=== PATIENT | male | born 1995 | race African-American/Black ===

== ENCOUNTER 2020-10-11 09:53 | Inpatient (IN) | payer BC, OTHER ==
[2020-10-11] MEDS ORDERED: SODIUM CHLORIDE 1,000 ML IV STA (10:57)
[2020-10-11 12:16] LABS: BASO % 1.4 % (0-2.0); EOS % 1.5 % (0-4.5); HEMOGLOBIN 7.4 GM/dL (11.7-16.9); LYMPH % 43.8 % (8-40); MONO % 7.4 % (3.8-10.2); NEUT % 45.9 % (42.8-82.8); WHITE BLOOD COUNT 2.4 K/mm3 (4.0-10.0)
[2020-10-11 12:38] LABS: ALBUMIN 3.8 g/dl (3.4-5.0); CALCIUM 8.3 mg/dL (8.5-10.1)
[2020-10-11 12:39] LABS: BLOOD UREA NITROGEN 15.9 mg/dL (7-18)
[2020-10-11 12:42] LABS: CREATININE 0.7 mg/dL (0.55-1.3)
[2020-10-11 12:43] LABS: BILIRUBIN,TOTAL 0.7 mg/dL (0.2-1); TOT PROT 6.8 g/dl (6.4-8.2)
[2020-10-11 13:02] LABS: INR 1.16 (0.83-1.09); PROTHROMBIN TIME (PATIENT) 14.2 SEC (9.7-13.0)
[2020-10-11] MEDS ORDERED: MELATONIN 5 MG TABLETS PO ONE (20:53)
[2020-10-12] MEDS ORDERED: PANTOPRAZOLE SODIUM 40 MG VIAL IVPUSH ONE (01:11)
[2020-10-12] MEDS ORDERED: SODIUM CHLORIDE 1,000 ML IV SCH ×2 (02:30)
[2020-10-12 02:43] LABS: RETICULOCYTES 1.58 % (0.5-1.5)
[2020-10-12 02:59] LABS: HEMATOCRIT 23.1 % (35.4-49); MCH 23.9 pg (25.7-33.7); MEAN CELL VOLUME 74.7 fl (80-96); MEAN PLT VOLUME 10.9 fl (7.5-11.1); PLATELET COUNT 217 K/MM3 (134-434); RBC 3.09 M/mm3 (4.00-5.60); RDW 19.5 % (11.9-15.9)
[2020-10-12 08:32] LABS: PH,URINE 6.5 (5.0-8.0); URINE APPEARANCE CLEAR; URINE BILIRUBIN NEGATIVE (NEGATIVE); URINE COLOR YELLOW; URINE GLUCOSE (UA) NEGATIVE (NEGATIVE); URINE KETONE NEGATIVE (NEGATIVE); URINE LEUK ESTERASE NEGATIVE (NEGATIVE); URINE NITRITE NEGATIVE (NEGATIVE); URINE PROTEIN NEGATIVE (NEGATIVE); URINE UROBILINOGEN 0.2 mg/dL (0.2-1.0)
[2020-10-12 09:32] LABS: BASO % 0.9 % (0-2.0); EOS % 1.7 % (0-4.5); HEMATOCRIT 28.1 % (35.4-49); HEMOGLOBIN 9.3 GM/dL (11.7-16.9); LYMPH % 37.8 % (8-40); MCH 24.7 pg (25.7-33.7); MCHC 33.1 g/dl (32.0-35.9); MEAN CELL VOLUME 74.7 fl (80-96); MEAN PLT VOLUME 10.2 fl (7.5-11.1); MONO % 4.5 % (3.8-10.2); NEUT % 55.1 % (42.8-82.8); PLATELET COUNT 219 K/MM3 (134-434); RBC 3.77 M/mm3 (4.00-5.60)
[2020-10-12] MEDS ORDERED: PANTOPRAZOLE SODIUM 40 MG VIAL IVPUSH SCH (10:00)
[2020-10-12 10:05] LABS: ALBUMIN 4.1 g/dl (3.4-5.0); BLOOD UREA NITROGEN 8.9 mg/dL (7-18); CALCIUM 8.3 mg/dL (8.5-10.1); MAGNESIUM 2.1 mg/dL (1.8-2.4)
[2020-10-12 10:09] LABS: CREATININE 0.8 mg/dL (0.55-1.3)
[2020-10-12 10:10] LABS: BILIRUBIN,TOTAL 1.8 mg/dL (0.2-1); TOT PROT 7.4 g/dl (6.4-8.2)
[2020-10-12 10:52] LABS: HIV INTERPRETATION NEGATIVE (NEGATIVE)
[2020-10-12] MEDS ORDERED: ACETAMINOPHEN 325 MG TABLET (FP) PO PRN (11:13)
[2020-10-12] MEDS ORDERED: IRON SUCROSE INJECTION 200 MG in SODIUM CHLORIDE 90 ML IVPB ONE (12:00)
[2020-10-12] MEDS ORDERED: PT OWN MED DRAWER 7, Y5N ONE (13:16)
[2020-10-12] MEDS: MAG HYDROX/AL HYDROX/SIMETH 30 ML UNIT-DOSE CUP PO SCH ×3 (13:21→23:30)
[2020-10-12] MEDS: PANTOPRAZOLE SODIUM 80 MG in SODIUM CHLORIDE 100 ML IVPB SCH ×2 (13:27→21:37)
[2020-10-12] MEDS ORDERED: MELATONIN 5 MG TABLETS PO ONE (21:05)
[2020-10-13] MEDS: PANTOPRAZOLE SODIUM 80 MG in SODIUM CHLORIDE 100 ML IVPB SCH ×3 (03:57→17:24)
[2020-10-13] MEDS: MAG HYDROX/AL HYDROX/SIMETH 30 ML UNIT-DOSE CUP PO SCH ×4 (05:35→23:58)
[2020-10-13 09:06] LABS: BASO % 1.8 % (0-2.0); EOS % 1.8 % (0-4.5); HEMATOCRIT 30.2 % (35.4-49); HEMOGLOBIN 10.2 GM/dL (11.7-16.9); LYMPH % 29.6 % (8-40); MCH 25.8 pg (25.7-33.7); MEAN CELL VOLUME 75.9 fl (80-96); MEAN PLT VOLUME 10.2 fl (7.5-11.1); MONO % 7.1 % (3.8-10.2); NEUT % 59.7 % (42.8-82.8); PLATELET COUNT 226 K/MM3 (134-434); RBC 3.97 M/mm3 (4.00-5.60); RDW 21.1 % (11.9-15.9); WHITE BLOOD COUNT 3.6 K/mm3 (4.0-10.0)
[2020-10-13 09:07] LABS: HEMATOCRIT 30.4 % (35.4-49); HEMOGLOBIN 10.2 GM/dL (11.7-16.9); MCH 25.6 pg (25.7-33.7); MCHC 33.6 g/dl (32.0-35.9); MEAN CELL VOLUME 76.2 fl (80-96); MEAN PLT VOLUME 9.9 fl (7.5-11.1); PLATELET COUNT 221 K/MM3 (134-434); RBC 3.99 M/mm3 (4.00-5.60); RDW 21.1 % (11.9-15.9); WHITE BLOOD COUNT 3.7 K/mm3 (4.0-10.0)
[2020-10-13 09:20] LABS: CHLORIDE 106 mmol/L (98-107); SODIUM 139 mmol/L (136-145)
[2020-10-13 09:30] LABS: CALCIUM 8.1 mg/dL (8.5-10.1)
[2020-10-13 09:31] LABS: ALBUMIN 3.8 g/dl (3.4-5.0); ANION GAP 5 MMOL/L (8-16); BLOOD UREA NITROGEN 8.7 mg/dL (7-18); CO2 27 mmol/L (21-32); GLUCOSE,RANDOM 73 mg/dL (74-106)
[2020-10-13 09:34] LABS: CREATININE 0.9 mg/dL (0.55-1.3); SGOT/AST 10 U/L (15-37); SGPT/ALT 12 U/L (13-61)
[2020-10-13 09:36] LABS: BILIRUBIN,TOTAL 2.9 mg/dL (0.2-1); TOT PROT 6.8 g/dl (6.4-8.2)
[2020-10-13 09:37] LABS: ALK PHOS 36 U/L (45-117)
[2020-10-13 09:52] LABS: ANISOCYTOSIS 2+; MACROCYTOSIS 1+; PLATELET ESTIMATE NORMAL
[2020-10-13 14:43] VITALS: BMI 19.3
[2020-10-13] MEDS ORDERED: PT OWN MED DRAWER 7, Y5N ONE (15:06)
[2020-10-14] MEDS: PANTOPRAZOLE SODIUM 80 MG in SODIUM CHLORIDE 100 ML IVPB SCH ×2 (00:36→05:41)
[2020-10-14] MEDS: MAG HYDROX/AL HYDROX/SIMETH 30 ML UNIT-DOSE CUP PO SCH ×4 (05:40→23:01)
[2020-10-14 08:59] LABS: HEMATOCRIT 30.9 % (35.4-49); HEMOGLOBIN 10.5 GM/dL (11.7-16.9); MCH 25.6 pg (25.7-33.7); MCHC 33.9 g/dl (32.0-35.9); MEAN CELL VOLUME 75.3 fl (80-96); MEAN PLT VOLUME 9.8 fl (7.5-11.1); PLATELET COUNT 212 K/MM3 (134-434); RBC 4.11 M/mm3 (4.00-5.60); RDW 21.8 % (11.9-15.9); WHITE BLOOD COUNT 3.6 K/mm3 (4.0-10.0)
[2020-10-14] MEDS ORDERED: IRON SUCROSE INJECTION 200 MG in SODIUM CHLORIDE 90 ML IVPB ONE (09:00)
[2020-10-14 09:19] LABS: BLOOD UREA NITROGEN 10.5 mg/dL (7-18); CALCIUM 8.9 mg/dL (8.5-10.1)
[2020-10-14 09:20] LABS: ALBUMIN 3.9 g/dl (3.4-5.0)
[2020-10-14 09:23] LABS: CREATININE 0.9 mg/dL (0.55-1.3)
[2020-10-14 09:24] LABS: BILIRUBIN,TOTAL 1.9 mg/dL (0.2-1); TOT PROT 7.1 g/dl (6.4-8.2)
[2020-10-14] MEDS: PANTOPRAZOLE 40 MG TABLET PO SCH ×2 (10:55→23:01)
[2020-10-14] MEDS ORDERED: MELATONIN 5 MG TABLETS PO ONE (23:28)
[2020-10-15] MEDS: MAG HYDROX/AL HYDROX/SIMETH 30 ML UNIT-DOSE CUP PO SCH ×2 (05:33→11:07)
[2020-10-15 09:24] LABS: HEMATOCRIT 32.5 % (35.4-49); HEMOGLOBIN 10.7 GM/dL (11.7-16.9); MCH 25.4 pg (25.7-33.7); MEAN CELL VOLUME 77.1 fl (80-96); MEAN PLT VOLUME 9.6 fl (7.5-11.1); PLATELET COUNT 204 K/MM3 (134-434); RBC 4.22 M/mm3 (4.00-5.60); RDW 22.9 % (11.9-15.9); WHITE BLOOD COUNT 2.7 K/mm3 (4.0-10.0)
[2020-10-15 09:58] VITALS: BP 110/66; PULSE 52; TEMP 98.3
[2020-10-15 10:01] LABS: CALCIUM 9.2 mg/dL (8.5-10.1)
[2020-10-15 10:02] LABS: ALBUMIN 3.9 g/dl (3.4-5.0); BLOOD UREA NITROGEN 9.4 mg/dL (7-18)
[2020-10-15 10:05] LABS: CREATININE 0.9 mg/dL (0.55-1.3)
[2020-10-15 10:06] LABS: BILIRUBIN,TOTAL 1.3 mg/dL (0.2-1)
[2020-10-15] MEDS: PANTOPRAZOLE 40 MG TABLET PO SCH (11:06)
[2020-10-16 00:09] LABS: CARCINOEMBRYONIC ANTIGEN 2.8 ng/mL (0.0-4.7)
== END 2020-10-15 13:42 | disposition home or self-care (01) | DRG 378 ==
LOC: SUPCPDRO 09:53 → JER 09:53 → JERBED 11:44 → J5S 16:44
PROVIDERS: ADMIT Family Medicine; ATTEND Internal Medicine
PROC: 30233N1 Transfusion of Nonautologous Red Blood Cells into Peripheral Vein, Percutaneous Approach (ICD-10-PCS; 2020-10-11)
PROC: 0DB98ZX Excision of Duodenum, Via Natural or Artificial Opening Endoscopic, Diagnostic (ICD-10-PCS; principal; 2020-10-15 08:00)
DX: K26.4 Chronic or unspecified duodenal ulcer with hemorrhage (principal); Z68.1 Body mass index [BMI] 19.9 or less, adult; D72.819 Decreased white blood cell count, unspecified; D50.9 Iron deficiency anemia, unspecified; R63.4 Abnormal weight loss
CPT/HCPCS: 36415; 36430; 74177-TC; 76705-TC; 80053; 81003; 82272; 82378; 82728; 82941; 83540; 83550; 83690; 83735; 85025; 85027; 85045; 85610; 86140; 86850; 86900; 86901; 86922; 87389; 93005; 93010; 99285-25; C9803; J1756; P9058; Q9967; U0003; U0005